=== PATIENT | male | born 2000 | race Caucasian/White ===

== ENCOUNTER 2020-02-22 18:23 | Emergency (ER) | payer OTHER, SELFPAY ==
[2020-02-22 18:25] VITALS: BP 160/96; PULSE 102; PULSE 105; RESP 17; TEMP 36.7; O2SAT 97; BMI 38.7
[2020-02-22 19:12] LABS: Amphetamine Urine VISTA NEGATIVE (<1000 ng/mL); Barbiturate Urine VISTA NEGATIVE (< 200 ng/mL); Benzodiazepine Urine VISTA NEGATIVE (< 200 ng/mL); Cocaine Urine VISTA NEGATIVE (< 300 ng/mL); Ecstacy Urine VISTA NEGATIVE (< 500 ng/mL); Methadone Urine VISTA NEGATIVE (< 300 ng/mL); PCP Urine VISTA NEGATIVE (< 25 ng/mL); THC Urine VISTA POSITIVE (< 50 ng/mL); Vista UDS pH Range 6
[2020-02-22 19:31] VITALS: RESP 18
[2020-02-22 19:40] LABS: Absolute Lymphocyte Count 2.69 X10^3/uL (0.83-4.51); Basophil# 0.05 X10^3/uL; Basophil% 0.4 % (0-1); Eosinophils% 0.9 % (0-5); Hematocrit 42.3 % (40-54); Hemoglobin 15.1 g/dL (13.0-16.5); Lymphocyte # 2.69 X10^3/ul (4.0); Lymphocyte % 23.3 % (19-41); Mean Corp Hgb Conc 35.7 g/dL (32-36); Mean Corpuscular Hgb 32.1 pg (27.0-32.0); Mean Corpuscular Volume 89.8 fL (80-94); Mean Platelet Vol. 11.3 fl (6.2-12.0); Monocyte# 0.64 X10^3/uL; Monocyte% 5.5 % (0-10); NRBC Flagged by Analyzer 0 % (0-5); Neutrophil # 8.01 X10^3/uL (2.7-7.7); Neutrophil % 69.4 % (47-70); Platelet Count 193 K/mm3 (150-450); RBC Distribution Width CV 11.5 % (11.6-14.6); RBC Distribution Width SD 36.7 fl (35.1-43.9); Red Blood Count 4.71 M/mm3 (4.6-6.2); White Blood Count 11.6 K/mm3 (4.4-11.0)
[2020-02-22 19:47] LABS: Anion Gap 6 (5-15); BUN 11 mg/dL (7-18); BUN/Creat Ratio 11.8 RATIO (10-20); Calcium,Total 10.2 mg/dL (8.5-10.1); Chloride 109 mmol/L (98-107); Creatinine, Serum 0.93 mg/dL (0.70-1.30); EST Glomerular Filtration Rate 109 mL/min (>60); Est Glom Filt Rate - Afr Amer 132 mL/min (>60); Glucose 126 mg/dL (74-106); Potassium 3.5 mmol/L (3.5-5.1); Sodium Level 141 mmol/L (136-145)
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
--- NOTE | 2020-02-22 20:32 | ED.RN ---
CALLED [facility] TO SEE THIS PT PER REQUEST OF [facility]. REPORT FAXED TO THE OFFICE NUMBER
--- NOTE | 2020-02-22 20:52 | ED.RN ---
sitter discontinued verbal order dr. pagan. pt has aggression spontaneously and for safety no sitter will be ordered. pt mother at bedside.
[2020-02-22 21:48] VITALS: RESP 18
[2020-02-22] MEDS: Ibuprofen 600 MG Tablet PO (23:06)
[2020-02-23] VITALS (9 sets, daily range): BP systolic 146–148; BP diastolic 54–80; PULSE 69–87; RESP 16–18; O2SAT 98–100
--- NOTE | 2020-02-23 02:27 | ED.RN ---
[facility] called and is accepting him.
== END 2020-02-23 07:29 | disposition home or self-care (01) ==
LOC: ED 20:42
PROVIDERS: Emergency Provider Student in an Organized Health Care Education/Training Program
DX: F32.9 Major depressive disorder, single episode, unspecified (principal); R45.851 Suicidal ideations; S51.812A Laceration without foreign body of left forearm, initial encounter; S51.811A Laceration without foreign body of right forearm, initial encounter; S71.112A Laceration without foreign body, left thigh, initial encounter; S71.111A Laceration without foreign body, right thigh, initial encounter; X78.9XXA Intentional self-harm by unspecified sharp object, initial encounter; Y93.9 Activity, unspecified; Y92.9 Unspecified place or not applicable; Y99.9 Unspecified external cause status; F41.9 Anxiety disorder, unspecified; F17.200 Nicotine dependence, unspecified, uncomplicated
CPT/HCPCS: 80048; 80307; 80320; 85025; 99284; G0480

== ENCOUNTER 2020-12-13 22:03 | Emergency (ER) | payer OTHER, SELFPAY ==
[2020-12-13 22:03] VITALS: BP 155/81; PULSE 103; RESP 18; TEMP 36.6; O2SAT 96; BMI 36.9
--- NOTE | 2020-12-13 22:47 | EX.ED.VIS.UR ---
HPI HPI - URI History of Present Illness Chief Complaint: Nosebleed Informant: patient Onset/Context/Timing Onset: Hours (2) Context: Sudden Onset Timing: Continuous Quality: brisk oozing Location: left naris Current Severity: Mild Maximum Severity: Severe Worsened by: Not Worsened By Swallowing, Eating Solids and Drinking Liquids Relieved by: - (holding pressure) Associated Symptoms Associated Symptoms: Positive for - (no lightheadedness); Negative for Vomiting, Shortness of Breath and Chest Pain Narrative Narrative: Patient has a history of occasional left-sided nosebleeds in the past, tonight he accidentally took a trazodone which he is no longer on, when he took his other medications, and then started having nose bleeding, he states this is occurred in the past. ROS ROS ED Constitutional Constitutional ED: Denies chills, fever(s), malaise or weakness Eyes Eyes: Denies change in vision or diplopia ENT ENT ED: Reports epistaxis and rhinorrhea; Denies ear pain or sore throat Cardiovascular Cardiovascular: Denies chest pain or palpitations Respiratory/Chest Respiratory/Chest: Denies cough or dyspnea Gastrointestinal Gastrointestinal: Denies nausea or vomiting Neurologic Neurologic: Denies headache(s), paresthesias or weakness PFSH PFS Medical History (Updated 12/13/20 @ 23:[address] Wilfred Potts MD) Schizoaffective disorder, bipolar type Allergy/AdvReac Type Severity Reaction Status Date / Time No Known Allergies Allergy Verified 12/13/20 22:05 Social History Smoking Status: Heavy Smoker (>10/day) EXAM Physical Exam Const Vital Signs: 12/13/20 22:03 Temperature 97.9 F Temperature Source Temporal Pulse Rate 103 H Respiratory Rate 18 Blood Pressure 155/81 H Blood Pressure Mean 105 Pulse Ox 96 Oxygen Delivery Method Room Air Positive well nourished and well developed General Appearance ED: well developed and NAD HEENT HEENT Narrative: Minor blood in posterior oropharynx, no active bleeding. When nasal clip removed, there is mild bleeding from the left naris only, there is an obvious papular area where the bleeding appears to be coming from at the septum, a little back from anterior aspect, no sign of septal perforation, no pulsatile bleeding. Right side clear. normocephalic and atraumatic Face and Sinus: Negative for sinus tenderness Eyes PERRL and EOMs intact bilaterally Neck supple and no meningeal signs Resp normal respiratory effort Neuro oriented x3, CN's II-XII intact bilaterally, no sensory deficits noted and gait normal Sensorium / Orientation: alert Motor Exam: strength 5/5 throughout Psych mental status grossly normal Attitude: No agitated Skin Lesions: no lesions Rashes: no rashes MDM MDM MDM Narrative Medical decision making narrative: I had the patient evacuating his nasal cavity with tissues which she was easily able to do, followed by placement of a pledget soaked in Dr. Barger medication mixture, this provided good hemostasis, and was allowed to sit for 20 minutes or so. With removing it, a clot came with it. On reevaluation, the papular area at the nasal septum was no longer there, however there was an irritated area of mucosa that started to gently bleed and so it was cauterized with silver nitrate. Patient tolerated this well. He was observed for another 20 or 30 minutes and there was no recurrent bleeding. Discharged home stable condition given follow-up with ENT if needed. Procedures Other Procedures Procedure(s): Epistaxis care. See above. Discharge Plan Triage Chief Complaint: Nosebleed ED Provider: Wilfred Potts Dx/Rx/DC Orders Clinical Impression: Acute anterior epistaxis Instructions: Nosebleed Primary Care Provider: Care Physician,No Primary Referrals: Edouard Quiles MD [STAFF PHYSICIAN] - As Needed Care Physician,No Primary [Primary Care Provider] - Disposition Disposition: Home, self care
[2020-12-13] MEDS: Silver Nitrate (BKC) 1 EACH TOPICAL (22:52)
[2020-12-13] MEDS: Mixture 30 ML Bottle 10 ML TOPICAL (22:53)
== END 2020-12-13 23:58 | disposition home or self-care (01) ==
PROVIDERS: Emergency Provider Emergency Medicine
DX: R04.0 Epistaxis (principal); F25.0 Schizoaffective disorder, bipolar type; F17.200 Nicotine dependence, unspecified, uncomplicated
CPT/HCPCS: 30901; 99282